=== PATIENT | male | born 1985 | race African-American/Black ===

== ENCOUNTER → 2017-04-03 | Outpatient (CLI) | payer OTHER ==
[~2017-04-03] MED LIST: MEDROL4 MG/DOSE- PO; VOLTAREN75 MG PO
--- NOTE | ~2017-04-03 | CR181 ---
[facility]. [facility] A Service of [facility] & [facility] RADIOLOGY TEXT RESULTS PATIENT: DASHAWN MART LOCATION: [facility] : 87 UNIT #: [id number] AGE: [address]: Shaun Guadalupe MD SEX: M ORDER DR: [id number] [place] [id number] O MR#: [id number] Acc #: [id number] NAME: DASHAWN MART : 1985 SEX: M STUDY DATE/TIME: 04/03/2017 13:16 UNIT: [facility] ROOM: STUDY DESCRIPTION: CR Lumbar Spine 2 or 3 Views Attending Physician: Shaun Guadalupe M.D. Referring Physician: Shaun Guadalupe M.D. Ordering Physician: Shaun Guadalupe M.D. Primary Care Physician: Primary Care Physician No MEDICAL IMAGING REPORT This report is preliminary unless electronic signature is present. EXAM Lumbar spine 3 views, 04/03/2017 HISTORY Low back pain after a seizure 03/15/2017. Persistent pain, fell onto a wood table. FINDINGS AP and lateral projections of the lumbar segment show good mineralization of both anterior and posterior elements. They are all anatomically normal without indication of fracture, dislocation, or malignant change of a sclerotic or lytic type. There is no congenital defect noted. The sacroiliac joints are normal. IMPRESSION Normal lumbar spine. Dictated by... Abe Corbett M.D. THIS IS AN ELECTRONICALLY VERIFIED REPORT Abe Corbett M.D. at 04/04/2017 3:39 PM SUSHMA/nabeel TD: 04/04/2017 00:58 JOB #: [id number] MEDICAL IMAGING REPORT Page 1 of 1
--- NOTE | ~2017-04-03 | CR58 ---
[facility]. [facility] A Service of [facility] & [facility] RADIOLOGY TEXT RESULTS PATIENT: DASHAWN MART LOCATION: [facility] : 87 UNIT #: [id number] AGE: [address]: Shaun Guadalupe MD SEX: M ORDER DR: [id number] [place] [id number] O MR#: [id number] Acc #: [id number] NAME: DASHAWN MART : 1985 SEX: M STUDY DATE/TIME: 04/03/2017 13:16 UNIT: [facility] ROOM: STUDY DESCRIPTION: CR Cervical Spine 2 or 3 Views Attending Physician: Shaun Guadalupe M.D. Referring Physician: Shaun Guadalupe M.D. Ordering Physician: Shaun Guadalupe M.D. Primary Care Physician: Primary Care Physician No MEDICAL IMAGING REPORT This report is preliminary unless electronic signature is present. EXAM Cervical spine 4 views, 04/03/2017 HISTORY Neck pain after a seizure, 03/15/2017. Fell onto a wood table. FINDINGS 4 views of the cervical spine show satisfactory preservation of the cervical lordosis. The cervical soft tissues are normal. All anterior and posterior elements in the cervical area are anatomically normal without identifiable fracture, dislocation, malignant lytic or sclerotic change, or arthritis. There is no congenital defect apparent. IMPRESSION Normal cervical spine. Dictated by... Abe Corbett M.D. THIS IS AN ELECTRONICALLY VERIFIED REPORT Abe Corbett M.D. at 04/04/2017 3:39 PM SUSHMA/nabeel TD: 04/04/2017 00:56 JOB #: [id number] MEDICAL IMAGING REPORT Page 1 of 1
--- NOTE | ~2017-04-03 | CR242 ---
[facility]. [facility] A Service of [facility] & [facility] RADIOLOGY TEXT RESULTS PATIENT: DASHAWN MART LOCATION: [facility] : 87 UNIT #: [id number] AGE: [address]: Shaun Guadalupe MD SEX: M ORDER DR: [id number] [place] [id number] O MR#: [id number] Acc #: [id number] NAME: DASHAWN MART : 1985 SEX: M STUDY DATE/TIME: 04/03/2017 13:16 UNIT: [facility] ROOM: STUDY DESCRIPTION: CR Thoracic Spine 2 Views Attending Physician: Shaun Guadalupe M.D. Referring Physician: Shaun Guadalupe M.D. Ordering Physician: Shaun Guadalupe M.D. Primary Care Physician: Primary Care Physician No MEDICAL IMAGING REPORT This report is preliminary unless electronic signature is present. EXAM Thoracic spine 3 views, 04/03/2017 HISTORY Thoracic back pain after a seizure, 03/15/2017. Fell onto a wood table. FINDINGS AP and lateral examination of the dorsal segment shows normal mineralization and a satisfactory anatomical dorsal kyphosis. All body heights, interspaces, and posterior elements are normal anatomically without any indication of malignancy, trauma, unusual paraspinal soft tissue density mass, or congenital defect. IMPRESSION Normal thoracic spine. Dictated by... Abe Corbett M.D. THIS IS AN ELECTRONICALLY VERIFIED REPORT Abe Corbett M.D. at 04/04/2017 3:39 PM SUSHMA/nabeel TD: 04/04/2017 01:00 JOB #: [id number] MEDICAL IMAGING REPORT Page 1 of 1
== END | disposition home or self-care (01) ==
LOC: SRAD 12:52
DX: M54.5 Low back pain (principal); M54.2 Cervicalgia; R56.9 Unspecified convulsions
CPT/HCPCS: 72040; 72070; 72100